=== PATIENT | female | born 1990 | race Two or more races ===

== ENCOUNTER 2019-04-10 16:33 | Emergency (ER) | payer OTHER ==
[~2019-04-10] VITALS: Ht 167.6 cm; Wt 65.8 kg
[2019-04-10] MEDS ORDERED: ADVIL200 MG PO (16:56)
[2019-04-10] MEDS ORDERED: CYCLOBENZAPRINE10 MG PO (19:00)
== END 2019-04-10 19:51 | disposition home or self-care (01) ==
LOC: ED 16:33
DX: S61.219A Laceration without foreign body of unspecified finger without damage to nail, initial encounter (principal); S16.1XXA Strain of muscle, fascia and tendon at neck level, initial encounter; S60.222A Contusion of left hand, initial encounter; S80.02XA Contusion of left knee, initial encounter; V48.6XXA Car passenger injured in noncollision transport accident in traffic accident, initial encounter
CPT/HCPCS: 36415; 73130; 73560; 80053; 83690; 85025; 90471; 90715; 99283-25